=== PATIENT | male | born 1995 | race Caucasian/White ===

== ENCOUNTER 2021-05-07 15:11 | Emergency (ER) | payer BC, SELFPAY ==
[2021-05-07 15:15] VITALS: BP 127/82; PULSE 98; RESP 20; TEMP 36.4; O2SAT 100
--- NOTE | 2021-05-07 15:48 | ED.EAR ---
HPI - Ear Problem General Chief complaint: Ear Stated complaint: foreign body in ear Source: patient and RN notes reviewed Mode of arrival: ambulatory History of Present Illness HPI Narrative: This is a 26-year-old male who presented to urgent care with a foreign body in lodged in his right ear. Patient notes that the plastic portion to his ear bullets lodged in his ear and he was unable to remove it with tweezers. Patient denies any hearing disturbance. Plastic portion of it was removed with alligator. Edematous and erythema was present in the ear canal MD Complaint: ear pain Related Data Allergies Allergy/AdvReac Type Severity Reaction Status Date / Time tree nut Allergy Unknown Unknown Verified 05/07/21 15:17 Review of Systems Review of Systems: A 14 organ system Review of Systems was performed and pertinent positives included in the HPI, otherwise remaining ROS is negative. [facility] Family History Family History (Updated 05/07/21 @ 15:49 by ANMOL MossP-C) Other Family history non-contributory Exam Narrative: GENERAL: This is a well-nourished, well-developed patient, in no apparent distress. HEAD: normocephalic, atraumatic. EYES: PERRL. Sclera clear/white. Vision is grossly intact. EARS: External ears normal, auditory canals with black foreign body in canal was removed canal edema with erythematous TMs normal without perforation. Hearing grossly intact. NOSE: External nose normal with no obvious nasal discharge, nares without redness, no rhinorrhea. THROAT: Mucous membranes moist, posterior pharynx clear. NECK: Neck supple, non-tender without lymphadenopathy, masses or thyromegaly. CARDIOVASCULAR: Regular rate and rhythm without murmurs, gallops, or rubs. RESPIRATORY: Clear to auscultation. Breath sounds equal bilaterally. No wheezes, rales, or rhonchi. GASTROINTESTINAL: Abdomen soft, non-tender, nondistended. Bowel sounds are active. No hepato-splenomegaly, or palpable masses. No guarding. SKIN: warm, intact with no suspicious lesions or rash, good texture and turgor. NEURO: awake, alert, and oriented to person, place and time. There were no obvious focal neurologic abnormalities. Steady gait EXTREMITIES: Normal range of motion. No edema. No calf tenderness. Negative Homans sign bilaterally. BACK: Nontender without deformity or crepitance. No flank tenderness. Course Course Emergency Course: Foreign body removed patient treated for otitis Vital Signs Vital signs: Vital Signs Temperature 97.6 F 05/07/21 15:15 Pulse Rate 98 05/07/21 15:15 Respiratory Rate 20 05/07/21 15:15 Blood Pressure 127/82 05/07/21 15:15 Pulse Oximetry 100 05/07/21 15:15 Temperature 97.6 F 05/07/21 15:15 Pulse Rate 98 05/07/21 15:15 Respiratory Rate 20 05/07/21 15:15 Blood Pressure 127/82 05/07/21 15:15 Pulse Oximetry 100 05/07/21 15:15 Medical Decision Making Vital Signs Vital Signs: Vital Signs Temperature 97.6 F 05/07/21 15:15 Pulse Rate 98 05/07/21 15:15 Respiratory Rate 20 05/07/21 15:15 Blood Pressure 127/82 05/07/21 15:15 Pulse Oximetry 100 05/07/21 15:15 Temperature 97.6 F 05/07/21 15:15 Pulse Rate 98 05/07/21 15:15 Respiratory Rate 05/07/21 15:15 Blood Pressure 127/82 05/07/21 15:15 Pulse Oximetry 100 05/07/21 15:15 Discharge Plan Discharge Clinical Impression: Otitis externa Qualifiers: Otitis externa type: noninfectious Noninfectious otitis externa type: contact Chronicity: acute Laterality: right Qualified Code(s): H60.531 - Acute contact otitis externa, right ear Patient Disposition: Home, Self-Care Condition: Stable Instructions: Antibiotic Form, Ear Foreign Body (ED) Additional Instructions: 1. Follow up with your provider within 1-2 weeks 2. Take prescription medication as ordered Notify your provider of any signs and symptoms of infection: Fever Foul Odor Discharge Heat at the Site: Increase in [place]
== END 2021-05-07 15:51 | disposition home or self-care (01) ==
PROVIDERS: Emergency Provider Nurse Practitioner
DX: H60.531 Acute contact otitis externa, right ear (principal)
CPT/HCPCS: 99213; G0463

== ENCOUNTER 2021-09-05 08:04 | Emergency (ER) | payer BC, SELFPAY ==
[2021-09-05 08:29] VITALS: BP 129/86; PULSE 94; RESP 16; TEMP 36.8; O2SAT 100
--- NOTE | 2021-09-05 08:44 | ED.URI ---
HPI - URI/Sore Throat General Chief Complaint: Upper Respiratory Infection Stated Complaint: Congestion Time Seen by Provider: 09/05/21 08:35 Source: patient Mode of arrival: ambulatory Limitations: no limitations History of Present Illness HPI Narrative: Kike Moctezuma is a 26 yo male with no PMH who [facility] with with complaints of ear pain and sinus pressure that started yesterday but is a recurrent issue for him. He was last treated for rhinosinusitis in May of this year. He has used [id number] medication without effect Related Data Allergies Allergy/AdvReac Type Severity Reaction Status Date / Time tree nut Allergy Unknown Unknown Verified 09/05/21 08:30 Review of Systems Review of Systems: CONSTITUTIONAL: Denies fever, chills, sweats. EYES: Denies visual changes, redness, discharge. ENT: Has rhinorrhea, congestion, sore throat, has bilateral otalgia. CARDIOVASCULAR: Denies chest pain, palpitations, edema. RESPIRATORY: Denies dyspnea, wheezing, cough GASTROINTESTINAL: Denies abdominal pain, nausea, vomiting, diarrhea. GENITOURINARY: Denies dysuria, hematuria, abnormal discharge SKIN: Denies rash or itching. NEUROLOGIC: Denies numbness, or focal weakness. PSYCHIATRIC: Denies anxiety or depression. [facility] Past Medical History Medical History No acute medical problems Family History Family History Other Family history non-contributory Social History Social History (Updated 09/05/21 @ 08:46 by Taryn Holliday CNP) Smoking status: Never smoker Alcohol intake: current Exam Narrative: GENERAL: This is a well-nourished, well-developed patient, in mild distress. HEAD: normocephalic, atraumatic. EYES: PERRL. Sclera clear/white. Vision is grossly intact. EARS: External ears normal, auditory canals bilateral erythema and without drainage, TMs normal without perforation. Hearing grossly intact. NOSE: External nose normal with yellow nasal discharge, nares without redness, has rhinorrhea. THROAT: Mucous membranes moist, posterior pharynx mild erythema NECK: Neck supple, non-tender CARDIOVASCULAR: Regular rate and rhythm without murmurs, gallops, or rubs. RESPIRATORY: Clear to auscultation. Breath sounds equal bilaterally. No wheezes, rales, or rhonchi. GASTROINTESTINAL: Abdomen soft, no SKIN: warm, intact with no suspicious lesions or rash, good texture and turgor. NEURO: awake, alert, and oriented to person, place and time. There were no obvious focal neurologic abnormalities. Steady gait EXTREMITIES: Normal range of motion. BACK: Nontender without deformity Course Course Emergency Course: Patient comes to [facility] with her symptoms of congestion and sinus pain which is recurrent for him Started on Zithromax Continue to use Flonase Vital Signs Vital signs: Vital Signs Temperature 98.2 F 09/05/21 08:29 Pulse Rate 94 09/05/21 08:29 Respiratory Rate 16 09/05/21 08:29 Blood Pressure 129/86 09/05/21 08:29 Pulse Oximetry 100 09/05/21 08:29 Temperature 98.2 F 09/05/21 08:29 Pulse Rate 94 09/05/21 08:29 Respiratory Rate 16 09/05/21 08:29 Blood Pressure 129/86 09/05/21 08:29 Pulse Oximetry 100 09/05/21 08:29 MDM - URI/Sore Throat Differential Diagnosis Differential diagnosis: Likely upper respiratory infection, sinusitis, viral infection, bronchitis, pharyngitis and other Critical Care Time Critical Care Time Critical Care Time: No Discharge Plan Discharge Clinical Impression: Viral infection Patient Disposition: Home, Self-Care Condition: Stable Instructions: Antibiotic Form, Rhinosinusitis (DC) Additional Instructions: Get [id number] Flonase and use 2 sprays to each nostril daily Prescriptions: New azithromycin [Zithromax Z-Efraín] 250 mg tablet See Rx Instructions .ROUTE .COMPLEX Qty: 6 RF: 0 Follow-u
== END 2021-09-05 09:04 | disposition home or self-care (01) ==
PROVIDERS: Emergency Provider Nurse Practitioner
DX: H60.399 Other infective otitis externa, unspecified ear (principal)
CPT/HCPCS: 99213; G0463

== ENCOUNTER 2022-05-13 14:22 | Emergency (ER) | payer BC, SELFPAY ==
--- NOTE | ~2022-05-13 | XR_ITS ---
XR tibia fibula RT 2V 05/13/2022 16:57 INDICATION: Right leg pain PROCEDURE: 2 views right tibia/fibula COMPARISON: No prior studies for comparison. FINDINGS: Fracture, dislocation or subluxation is not identified. The soft tissues appear within norm al limits. No foreign bodies are identified. IMPRESSION: 1: NO ACUTE BONE OR JOINT ABNORMALITY IDENTIFIED. Reviewed, dictated and finalized at location A.
[2022-05-13 14:39] VITALS: BP 117/93; PULSE 114; RESP 17; TEMP 37.1; O2SAT 100
--- NOTE | 2022-05-13 16:38 | ED.LOWEXIN ---
HPI - Extremity Injury (Lower) General Chief Complaint: Extremity Injury, Lower Stated Complaint: right leg injury Time Seen by Provider: 05/13/22 14:50 History of Present Illness HPI Narrative: 27-year-old male presents the emergency room for evaluation of right lower extremity pain. Patient states he was unloading a lawnmower, when his right leg got crushed in between the trailer and the lawnmower. Patient is complaining of right calf pain. Patient is ambulatory. Pain is worse with ambulation. Related Data Allergies Allergy/AdvReac Type Severity Reaction Status Date / Time tree nut Allergy Unknown Unknown Verified 05/13/22 14:45 Review of Systems Review of Systems: CONSTITUTIONAL: Denies fever, chills, or sweats. EYES: Denies visual changes, redness, or discharge. ENT: Denies rhinorrhea, congestion, sore throat, or otalgia. CARDIOVASCULAR: Denies chest pain, palpitations, or edema. RESPIRATORY: Denies cough or dyspnea. GASTROINTESTINAL: Denies abdominal pain, nausea, vomiting, or diarrhea. GENITOURINARY: Denies dysuria or hematuria. SKIN: Denies rash or itching. MUSCULOSKELETAL: Reports right calf pain NEUROLOGIC: Denies headache, numbness, dizziness, or weakness. PSYCHIATRIC: Denies anxiety or depression. PMFSH Past Medical History Medical History No acute medical problems Family History Family History Other Family history non-contributory Social History Social History Smoking status: Never smoker Alcohol intake: current Exam Narrative: GENERAL: Well-appearing, well-nourished, no physical limitations, and in no acute distress. HEAD: Normocephalic, atraumatic. EYES: Conjunctivae normal, PERRLA and EOMI. CHEST: Clear to auscultation. No respiratory distress. No wheezes rales or rhonchi. No tenderness. HEART: Regular rate and rhythm. No murmur heard. Normal peripheral pulses. BACK: No cervical/thoracic/lumbar tenderness, step-offs, bony abnormality; FROM EXTREMITIES: Right lower extremity: Tenderness to the calf, minimal amount of soft tissue swelling and ecchymosis. Calf pain is worse with dorsiflexion and plantarflexion SKIN: Warm, dry, no rash. No noted wounds NEURO: No focal deficits. Alert and oriented x3. MAEW. CN's II-XI intact bilaterally, normal gait PSYCH: Cooperative. Normal mood and affect. Course Vital Signs Vital signs: Vital Signs Temperature 37.1 C 05/13/22 14:39 Pulse Rate 114 H 05/13/22 14:39 Respiratory Rate 17 05/13/22 14:39 Blood Pressure 117/93 H 05/13/22 14:39 Pulse Oximetry 100 05/13/22 14:39 Oxygen Delivery Room Air 05/13/22 14:39 Temperature 37.1 C 05/13/22 14:39 Pulse Rate 114 H 05/13/22 14:39 Respiratory Rate 17 05/13/22 14:39 Blood Pressure 117/93 H 05/13/22 14:39 Pulse Oximetry 100 05/13/22 14:39 Oxygen Delivery Room Air 05/13/22 14:39 MDM - Extremity Injury (Lower) Lab Data Labs: Lab Results 05/13/22 05/13/22 Range/Units 16:51 17:09 Total Creatine Kinase 173 H (55-170) U/L Urine Color Yellow (Yellow) Urine Appearance Clear (Clear) Urine pH 5.5 (5.0-9.0) Ur Specific [place] 1.025 (1.001-1.035) Urine Protein Negative (Negative) mg/dL Urine Glucose (UA) Negative (Negative) mg/dL Urine Ketones Negative (Negative) mg/dL Ur Blood (Man) Negative (Negative) Urine Nitrate Negative (Negative) Urine Bilirubin Negative (Negative) Urine Urobilinogen 0.2 (<2.0) mg/dL Leukocyte Esterase Rfl Negative (Negative) NAHOMY/UL Discharge Plan Discharge Clinical Impression: Crush injury lower leg Patient Disposition: Home, Self-Care Condition: Stable Instructions: Antibiotic Form, Crush Injury (ED) Additional Instructions: Return to the emergency room if your pain worsens. Prescriptions:
[2022-05-13] MEDS: KETOROLAC 30 MG/ML VIAL (*BKC) IV PUSH (17:05)
[2022-05-13 17:16] LABS: Creatine Kinase 173 U/L (55-170)
[2022-05-13 17:29] LABS: Appearance Urine Clear (Clear); Bilirubin Urine Negative (Negative); Blood Urine Negative (Negative); Color Urine Yellow (Yellow); Glucose Urine UA Negative (Negative); Ketones Urine Negative (Negative); Leukocyte Esterase Ur Negative LEU/UL (Negative); Nitrate Urine Negative (Negative); Protein Urine Negative (Negative); Specific Grav Ur 1.025 (1.001-1.035); Urobilinogen Urine 0.2 mg/dL (<2.0); pH Urine 5.5 (5.0-9.0)
[2022-05-13 17:31] LABS: Add Urine Microscopic? NO
== END 2022-05-13 18:20 | disposition home or self-care (01) ==
PROVIDERS: Emergency Provider Nurse Practitioner Family
DX: S87.80XA Crushing injury of unspecified lower leg, initial encounter (principal); W23.0XXA Caught, crushed, jammed, or pinched between moving objects, initial encounter
CPT/HCPCS: 36415; 73590; 81003; 82550; 96374; 99284; J1885

== ENCOUNTER 2022-06-14 09:08 | Emergency (ER) | payer BC, SELFPAY ==
[2022-06-14 09:14] VITALS: BP 115/71; PULSE 85; RESP 14; TEMP 37.3; O2SAT 100
--- NOTE | 2022-06-14 09:15 | ED.SKABFB ---
HPI - Skin/Abscess/Foreign Bdy General Chief complaint: Skin/Abscess/Foreign Body Stated complaint: rash in armpits and moving Time Seen by Provider: 06/14/22 09:15 Source: patient and RN notes reviewed History of Present Illness HPI narrative: Patient is a 27-year-old male who presents the urgent care with complaints of a rash to the underarms starting on the left side and now working its way to the right underarm as well as the right waist. Patient states that he was outside in the yard working approximately 2 weeks ago and believes he may have came in contact with poison emily. Patient has been using A&E ointment, calamine, peroxide and Benadryl without much relief. Patient states it is very itchy. No other acute complaints. No acute distress noted. Patient read the plan of care. Some parts of this dictation were generated by voice recognition software and may contain typographical and/or grammatical inaccuracies. Related Data Allergies Allergy/AdvReac Type Severity Reaction Status Date / Time tree nut Allergy Unknown Unknown Verified 06/14/22 09:22 Review of Systems Review of Systems: CONSTITUTIONAL: Denies fever, chills, or sweats. EYES: Denies visual changes, redness, or discharge. ENT: Denies rhinorrhea, congestion, sore throat, or otalgia. CARDIOVASCULAR: Denies chest pain, palpitations, or edema. RESPIRATORY: Denies cough or dyspnea. GASTROINTESTINAL: Denies abdominal pain, nausea, vomiting, or diarrhea. GENITOURINARY: Denies dysuria or hematuria. SKIN: Reports of an itchy red rash under both arms into the waist MUSCULOSKELETAL: Denies back pain, joint pain, or myalgia. NEUROLOGIC: Denies headache, numbness, or weakness. All other systems reviewed are negative, except as documented in HPI. [facility] Past Medical History Medical History No acute medical problems Family History Family History Other Family history non-contributory Social History Social History Smoking status: Never smoker Alcohol intake: current Comments At the time of my signature, I reviewed and agree with the nursing past medical, surgical, social, and family history. There is no relevant family history pertinent to the patient complaint. Exam Narrative: GENERAL: This is a well-nourished, well-developed patient, in no apparent distress. HEAD: normocephalic, atraumatic. EYES: PERRL. Sclera clear/white. Vision is grossly intact. EARS: External ears normal NOSE: External nose normal with no obvious nasal discharge, nares without redness, no rhinorrhea. THROAT: Mucous membranes moist NECK: Neck supple SKIN: Diffuse raised blanching erythemic dermatitis with scant clear drainage under bilateral axilla regions and to the right waist. Warm, intact with no suspicious lesions or rash, good texture and turgor. NEURO: awake, alert, and oriented to person, place and time. There were no obvious focal neurologic abnormalities. EXTREMITIES: No clubbing, cyanosis, or edema Course Course Level of Care: Express Care Visit Vital Signs Vital signs: Vital Signs Temperature 99.1 F 06/14/22 09:14 Pulse Rate 85 06/14/22 09:14 Respiratory Rate 14 06/14/22 09:14 Blood Pressure 115/71 06/14/22 09:14 Pulse Oximetry 100 06/14/22 09:14 Oxygen Delivery Room Air 06/14/22 09:14 Temperature 99.1 F 06/14/22 09:14 Pulse Rate 85 06/14/22 09:14 Respiratory Rate 14 06/14/22 09:14 Blood Pressure 115/71 06/14/22 09:14 Pulse Oximetry 100 06/14/22 09:14 Oxygen Delivery Room Air 06/14/22 09:14 Reviewed MDM - Skin/Abscess/Foreign Bdy MDM Narrative Medical decision making narrative: Advised patient to complete the steroid regimen as prescribed. Be sure to eat and drink with the medication. Continue Benadryl as needed for itch and may use a nondrowsy antihistamin
== END 2022-06-14 09:30 | disposition home or self-care (01) ==
PROVIDERS: Emergency Provider Nurse Practitioner Family
DX: L23.7 Allergic contact dermatitis due to plants, except food (principal)
CPT/HCPCS: 99213; G0463